=== PATIENT | female | born 1970 | race Caucasian/White ===

== ENCOUNTER 2017-03-11 22:31 | Inpatient (IN) | payer MEDICAID, OTHER ==
[~2017-03-11] VITALS: Ht 157.5 cm; Wt 86.2 kg
[2017-03-12] MEDS ORDERED: MORPHINE SULFATE 4 MG/ML CPJ (NOT FOR IM USE) IV STA (02:18)
[2017-03-12] MEDS ORDERED: ONDANSETRON HCL 4MG/2ML VIAL IV STA (02:18)
[2017-03-12] MEDS ORDERED: SODIUM CHLORIDE 0.9% 1,000 ML IV ONE (02:18)
[2017-03-12 02:35] LABS: CLARITY URINE CLOUDY (CLEAR); COLOR URINE YELLOW (YELLOW); GLUCOSE URINE NEGATIVE (NEGATIVE); KETONES URINE NEGATIVE (NEGATIVE); LEUKOCYTE ESTERASE URINE 1+ (NEGATIVE); NITRITE URINE POSITIVE (NEGATIVE); OCCULT BLOOD URINE NEGATIVE (NEGATIVE); PROTEIN URINE NEGATIVE (NEGATIVE); SPECIFIC GRAVITY URINE 1.019 (1.005-1.030)
[2017-03-12 02:36] LABS: BASOPHILS % 0.2 % (0.0-2.0); EOSINOPHILS % 1.8 % (0.0-5.0); HEMATOCRIT. 31.1 % (36.0-48.0); HEMOGLOBIN. 9.5 g/dL (12.0-16.0); LYMPHOCYTES % 41.9 % (20.0-50.0); MEAN CORPUSCULAR HEMOGLOBIN 20.4 pg (28.0-32.0); MEAN CORPUSCULAR VOLUME 66.5 fL (81.0-99.0); MEAN PLATELET VOLUME 7.3 fl (7.4-10.4); MONOCYTES % 6.4 % (2.0-8.0); NEUTROPHILS % 49.7 % (40.0-76.0); PLATELET 313 x1000/uL (130-400); RED BLOOD CELL COUNT 4.68 mill/uL (4.2-5.4); RED CELL DISTRIBUTION WIDTH 18.5 % (11.6-14.6)
[2017-03-12 03:04] LABS: CARBON DIOXIDE 28 mEq/L (21-32); CHLORIDE 106 mEq/L (98-107)
[2017-03-12] MEDS ORDERED: DIATRIZOATE MEGLUMINE 300ML INFUS BTL UR ONE (04:15)
[2017-03-12] MEDS ORDERED: LEVOFLOXACIN 750MG PREMIX 150 ML IV NR (04:45)
[2017-03-12 08:00] VITALS: BP 107/61
[2017-03-12 08:30] VITALS: BP 107/61
[2017-03-12 10:00] VITALS: BP 107/61
[2017-03-12] MEDS ORDERED: INFLUENZA VIRUS VACCINE 0.5ML SYR IM ONE (10:45)
[2017-03-12 12:00] VITALS: BP 94/40
[2017-03-12 12:28] LABS: HEMATOCRIT 30.8 % (36.0-48.0); HEMOGLOBIN 9.5 g/dL (12.0-16.0); MEAN CORPUSCULAR HEMOGLOBIN 20.8 pg (28.0-32.0); MEAN CORPUSCULAR VOLUME 67.3 fL (81.0-99.0); PLATELET 293 x1000/uL (130-400); RED BLOOD CELL COUNT 4.58 mill/uL (4.2-5.4); RED CELL DISTRIBUTION WIDTH 18.1 % (11.6-14.6)
[2017-03-12 13:59] LABS: CARBON DIOXIDE 27 mEq/L (21-32); CHLORIDE 106 mEq/L (98-107)
[2017-03-12] MEDS: MORPHINE SULFATE 4 MG/ML CPJ (NOT FOR IM USE) IV PRN (15:16)
[2017-03-12] MEDS: ONDANSETRON HCL 4MG/2ML VIAL IV PRN ×2 (15:16→20:47)
[2017-03-12] MEDS: SODIUM CHLORIDE 0.9% 1,000 ML IV SCH ×2 (15:18→20:07)
[2017-03-12 15:54] VITALS: BP 117/48
[2017-03-12 20:00] VITALS: BP 92/44
[2017-03-12] MEDS: FAMOTIDINE 20MG TABLET PO SCH (20:07)
[2017-03-13 00:04] VITALS: BP 129/64
[2017-03-13] MEDS: MORPHINE SULFATE 4 MG/ML CPJ (NOT FOR IM USE) IV PRN ×2 (02:02→11:37)
[2017-03-13 04:24] VITALS: BP 95/53
[2017-03-13] MEDS: LEVOFLOXACIN 500MG PREMIX 100 ML IV SCH (04:25)
[2017-03-13 05:37] LABS: BASOPHILS % 0.6 % (0.0-2.0); EOSINOPHILS % 1.8 % (0.0-5.0); HEMATOCRIT 29.9 % (36.0-48.0); HEMATOCRIT. 29.9 % (36.0-48.0); HEMOGLOBIN 9.2 g/dL (12.0-16.0); HEMOGLOBIN. 9.2 g/dL (12.0-16.0); LYMPHOCYTES % 43.6 % (20.0-50.0); MEAN CORPUSCULAR HEMOGLOBIN 20.6 pg (28.0-32.0); MEAN CORPUSCULAR VOLUME 66.5 fL (81.0-99.0); MEAN PLATELET VOLUME 7.6 fl (7.4-10.4); MONOCYTES % 5.7 % (2.0-8.0); NEUTROPHILS % 48.3 % (40.0-76.0); PLATELET 297 x1000/uL (130-400); RED BLOOD CELL COUNT 4.49 mill/uL (4.2-5.4); RED CELL DISTRIBUTION WIDTH 18.6 % (11.6-14.6)
[2017-03-13 07:02] LABS: CHLORIDE 105 mEq/L (98-107)
[2017-03-13 07:16] LABS: CARBON DIOXIDE 24 mEq/L (21-32); TOTAL IRON BINDING CAPACITY 419 ug/dL (250-450)
[2017-03-13 08:00] VITALS: BP 101/58
[2017-03-13] MEDS: FAMOTIDINE 20MG TABLET PO SCH ×2 (08:48→20:55)
[2017-03-13 09:29] LABS: PLATELET ESTIMATE NORMAL
[2017-03-13 12:00] VITALS: BP 115/64
[2017-03-13] MEDS: SODIUM CHLORIDE 0.9% 1,000 ML IV SCH (14:05)
[2017-03-13 16:00] VITALS: BP 99/78
[2017-03-13 20:00] VITALS: BP 106/62
[2017-03-14] VITALS: BP 96/57
[2017-03-14 04:00] VITALS: BP 95/46
[2017-03-14] MEDS: LEVOFLOXACIN 500MG PREMIX 100 ML IV SCH (05:07)
[2017-03-14 08:00] VITALS: BP 117/55
[2017-03-14] MEDS ORDERED: KETOROLAC 30MG/ML VIAL IV PRN (08:15)
[2017-03-14] MEDS: FAMOTIDINE 20MG TABLET PO SCH (08:33)
[2017-03-14] MEDS: MORPHINE SULFATE 4 MG/ML CPJ (NOT FOR IM USE) IV PRN (11:17)
[2017-03-14 12:00] VITALS: BP 128/65
[2017-03-14 13:28] VITALS: BP 119/56
== END 2017-03-14 15:10 | disposition home or self-care (01) | DRG 463 ==
LOC: ER 22:31 → 5WST 03-12 05:15 → EDBEDREQ 03-12 05:22 → ENRESERV 03-12 06:23
PROVIDERS: ADMIT Internal Medicine; ATTEND Internal Medicine
DX: N10 Acute pyelonephritis (principal); E44.1 Mild protein-calorie malnutrition; E66.9 Obesity, unspecified; J45.909 Unspecified asthma, uncomplicated; D50.9 Iron deficiency anemia, unspecified; Z68.34 Body mass index [BMI] 34.0-34.9, adult
CPT/HCPCS: 36415; 71010; 74177; 80048; 80053; 81001; 81025; 83540; 83550; 83605; 83690; 85025; 85027; 87040; 87077; 87086; 87186; 90686; 96361; 96365; 96366; 96375; 99285; J1885; J1956; J2270; J2405; J7030; Q9958

== ENCOUNTER 2018-11-23 02:36 | Inpatient (IN) | payer MEDICAID, OTHER ==
[~2018-11-23] VITALS: Ht 154.9 cm; Wt 105.3 kg
[2018-11-23] MEDS ORDERED: ONDANSETRON HCL 4MG/2ML INJ IV STA (03:39)
[2018-11-23] MEDS ORDERED: MORPHINE SULFATE 4 MG/ML CPJ (NOT FOR IM USE) IV STA (03:39)
[2018-11-23] MEDS ORDERED: SODIUM CHLORIDE 0.9% 1,000 ML IV ONE ×2 (03:39)
[2018-11-23 03:59] LABS: BASOPHILS % 0.8 % (0.0-2.0); HEMOGLOBIN. 10.4 g/dL (12.0-16.0); LYMPHOCYTES % 39.5 % (20.0-50.0); MEAN CORPUSCULAR HEMOGLOBIN 22.2 pg (28.0-32.0); MEAN CORPUSCULAR VOLUME 70.1 fL (81.0-99.0); MEAN PLATELET VOLUME 7.9 fl (7.4-10.4); MONOCYTES % 5.8 % (2.0-8.0); NEUTROPHILS % 51.9 % (40.0-76.0); PLATELET 275 x1000/uL (130-400); RED CELL DISTRIBUTION WIDTH 20.3 % (11.6-14.6)
[2018-11-23 04:02] LABS: CHLORIDE 106 mEq/L (98-107)
[2018-11-23 05:33] LABS: CLARITY URINE CLEAR (CLEAR); COLOR URINE YELLOW (YELLOW); KETONES URINE NEGATIVE (NEGATIVE); LEUKOCYTE ESTERASE URINE NEGATIVE (NEGATIVE); NITRITE URINE NEGATIVE (NEGATIVE); OCCULT BLOOD URINE 2+ (NEGATIVE); PROTEIN URINE NEGATIVE (NEGATIVE); SPECIFIC GRAVITY URINE 1.007 (1.005-1.030); UROBILINOGEN URINE 0.2 E.U./dL (0.2-1.0)
[2018-11-23] MEDS ORDERED: ONDANSETRON HCL 4MG/2ML INJ IV PRN (07:30)
[2018-11-23] MEDS ORDERED: ACETAMINOPHEN 325MG TABLET PO PRN (07:30)
[2018-11-23] MEDS ORDERED: DOCUSATE SODIUM 100MG CAPSULE PO PRN (07:30)
[2018-11-23] MEDS ORDERED: HYDROCODONE/ACETAMINOPHEN 5/325MG TABLET PO PRN (07:30)
[2018-11-23] MEDS ORDERED: DIPHENHYDRAMINE 50MG/ML VIAL IV PRN (07:30)
[2018-11-23] MEDS ORDERED: GUAIFENESIN 200MG/10ML SUGAR FREE UDC PO PRN (07:30)
[2018-11-23] MEDS ORDERED: CLONIDINE 0.1MG TABLET PO PRN (07:30)
[2018-11-23] MEDS ORDERED: IPRATROPIUM/ALBUTEROL 0.5-3(2.5)MG/3ML NEB INH PRN (07:30)
[2018-11-23] MEDS ORDERED: MAGNESIUM/ALUMINUM HYDROXIDE/SIMETHICONE 30ML UDC PO PRN (07:30)
[2018-11-23 07:53] LABS: PHOSPHORUS 3.5 mg/dL (2.5-4.9)
[2018-11-23] MEDS: SODIUM CHLORIDE 0.9% 1,000 ML IV SCH ×2 (08:00→23:17)
[2018-11-23 08:35] VITALS: BP 122/52
[2018-11-23] MEDS: MORPHINE SULFATE 2 MG/ML CPJ (NOT FOR IM USE) IV PRN ×3 (09:12→23:15)
[2018-11-23 12:00] VITALS: BP 127/61
[2018-11-23 16:00] VITALS: BP 114/64
[2018-11-23 20:00] VITALS: BP 127/72
[2018-11-24] VITALS: BP 124/76
[2018-11-24] MEDS: SODIUM CHLORIDE 0.9% 1,000 ML IV SCH ×2 (03:48→09:58)
[2018-11-24 04:00] VITALS: BP 108/51
[2018-11-24 06:30] LABS: CHLORIDE 108 mEq/L (98-107)
[2018-11-24 06:41] LABS: FERRITIN 24 ng/mL (10-291)
[2018-11-24 06:43] LABS: BASOPHILS % 0.4 % (0.0-2.0); EOSINOPHILS % 2.4 % (0.0-5.0); HEMATOCRIT. 33.6 % (36.0-48.0); HEMOGLOBIN. 10.6 g/dL (12.0-16.0); LYMPHOCYTES % 40.4 % (20.0-50.0); MEAN CORPUSCULAR HEMOGLOBIN 22.2 pg (28.0-32.0); MEAN CORPUSCULAR VOLUME 70.4 fL (81.0-99.0); MEAN PLATELET VOLUME 8.2 fl (7.4-10.4); MONOCYTES % 5.9 % (2.0-8.0); NEUTROPHILS % 50.9 % (40.0-76.0); PLATELET 265 x1000/uL (130-400); RED BLOOD CELL COUNT 4.78 mill/uL (4.2-5.4); RED CELL DISTRIBUTION WIDTH 20.3 % (11.6-14.6)
[2018-11-24 06:46] LABS: HDL CHOLESTEROL 40 mg/dL (40-59)
[2018-11-24 06:48] LABS: LDL CHOLESTEROL 104 mg/dL (5-100)
[2018-11-24 06:50] LABS: TOTAL IRON BINDING CAPACITY 398 ug/dL (250-450)
[2018-11-24 07:44] LABS: VITAMIN B12 SERUM 1057 pg/mL (211-911)
[2018-11-24 08:00] VITALS: BP 109/49
[2018-11-24 12:00] VITALS: BP 105/49
[2018-11-24 15:15] VITALS: BP_SYST 105; BP_SYST 121; BP_DIAS 43; BP_DIAS 49
[2018-11-24 16:00] VITALS: BP 121/43
[2018-11-24] MEDS ORDERED: FERROUS SULFATE 325MG TABLET PO SCH (17:15)
[2018-11-24] MEDS ORDERED: ASCORBIC ACID 500 MG TABLET PO SCH (21:00)
[2018-11-26 09:06] LABS: FOLATE HEMATOCRIT 34.4 % (34.0-46.6)
[2018-11-26 13:11] LABS: FOLATE HEMOLYSATE 378.5 ng/mL (Not Estab.); FOLATE RBC 1100 ng/mL (>498)
== END 2018-11-24 19:16 | disposition home or self-care (01) | DRG 244 ==
LOC: ER 02:36 → EDBEDREQ 05:45 → 5WST 05:45 → EDBEDREQTM 05:45 → ENRESERV 07:03
PROVIDERS: ADMIT Internal Medicine; ATTEND Internal Medicine
DX: K57.90 Diverticulosis of intestine, part unspecified, without perforation or abscess without bleeding (principal); K76.0 Fatty (change of) liver, not elsewhere classified; Z68.41 Body mass index [BMI] 40.0-44.9, adult; R10.31 Right lower quadrant pain; K52.9 Noninfective gastroenteritis and colitis, unspecified; D50.9 Iron deficiency anemia, unspecified; R74.0 Nonspecific elevation of levels of transaminase and lactic acid dehydrogenase [LDH]
CPT/HCPCS: 36415; 71045; 74176; 76700; 80061; 81025; 82607; 82728; 82747; 83540; 83550; 83605; 83735; 84100; 84443; 85014; 93005; 93970; 96361; 96374; 96375; 99285; J2270; J2405; J7030

== ENCOUNTER 2020-05-13 12:42 | Emergency (ER) | payer MEDICAID ==
[~2020-05-13] VITALS: Ht 157.5 cm; Wt 90.0 kg
[2020-05-13] MEDS ORDERED: IBUPROFEN 600MG TABLET PO STA (13:29)
[2020-05-13] MEDS ORDERED: ACETAMINOPHEN 325MG TABLET PO STA (13:29)
[2020-05-13 15:00] VITALS: BP 165/90
[2020-05-13 15:15] LABS: BASOPHILS % 0.5 % (0.0-2.0); EOSINOPHILS % 0.4 % (0.0-5.0); HEMATOCRIT. 30.8 % (36.0-48.0); HEMOGLOBIN. 9.3 g/dL (12.0-16.0); LYMPHOCYTES % 32.7 % (20.0-50.0); MEAN CORPUSCULAR HEMOGLOBIN 18.2 pg (28.0-32.0); MEAN CORPUSCULAR VOLUME 60.4 fL (81.0-99.0); MEAN PLATELET VOLUME 8.8 fl (7.4-10.4); MONOCYTES % 5.3 % (2.0-8.0); NEUTROPHILS % 61.1 % (40.0-76.0); PLATELET 216 x1000/uL (130-400); RED BLOOD CELL COUNT 5.09 mill/uL (4.2-5.4)
[2020-05-13 15:21] LABS: CHLORIDE 105 mEq/L (98-107)
[2020-05-13 15:52] LABS: PLATELET ESTIMATE NORMAL
== END 2020-05-13 15:00 | disposition home or self-care (01) ==
LOC: ER 12:42
DX: U07.1 COVID-19 (principal); R07.89 Other chest pain; J45.909 Unspecified asthma, uncomplicated
CPT/HCPCS: 36415; 71045; 80053; 83880; 84484; 85025; 93005; 99285

== ENCOUNTER 2021-08-17 00:51 | Emergency (ER) | payer MEDICAID ==
[~2021-08-17] VITALS: Ht 152.4 cm; Wt 97.0 kg
[2021-08-17] MEDS ORDERED: MORPHINE SULFATE 4 MG/ML CPJ (NOT FOR IM USE) IV STA (02:07)
[2021-08-17] MEDS ORDERED: ONDANSETRON HCL 4MG/2ML INJ IV STA (02:07)
[2021-08-17] MEDS ORDERED: SODIUM CHLORIDE 0.9% 1,000 ML IV ONE (02:15)
[2021-08-17 02:46] LABS: BASOPHILS % 0.2 % (0.0-2.0); CLARITY URINE CLEAR (CLEAR); COLOR URINE YELLOW (YELLOW); EOSINOPHILS % 1.9 % (0.0-5.0); HEMATOCRIT. 28.5 % (36.0-48.0); HEMOGLOBIN. 8.5 g/dL (12.0-16.0); KETONES URINE NEGATIVE (NEGATIVE); LEUKOCYTE ESTERASE URINE TRACE (NEGATIVE); LYMPHOCYTES % 36.5 % (20.0-50.0); MEAN CORPUSCULAR HEMOGLOBIN 17.6 pg (28.0-32.0); MEAN CORPUSCULAR VOLUME 58.9 fL (81.0-99.0); MEAN PLATELET VOLUME 8.6 fl (7.4-10.4); MONOCYTES % 6.5 % (2.0-8.0); NEUTROPHILS % 54.9 % (40.0-76.0); NITRITE URINE NEGATIVE (NEGATIVE); OCCULT BLOOD URINE NEGATIVE (NEGATIVE); PH URINE 6.5 (4.5-8.0); PLATELET 320 x1000/uL (130-400); PROTEIN URINE NEGATIVE (NEGATIVE); RED BLOOD CELL COUNT 4.84 mill/uL (4.2-5.4); RED CELL DISTRIBUTION WIDTH 21.2 % (11.6-14.6); SPECIFIC GRAVITY URINE 1.007 (1.005-1.030); UROBILINOGEN URINE 0.2 E.U./dL (0.2-1.0)
[2021-08-17 02:55] LABS: CHLORIDE 106 mEq/L (98-107)
[2021-08-17 03:41] LABS: PLATELET ESTIMATE NORMAL
[2021-08-17 06:00] VITALS: BP 147/65
[2021-08-17] MEDS ORDERED: IOHEXOL-300 100 ML BOTTLE ONE (06:13)
== END 2021-08-17 06:10 | disposition home or self-care (01) ==
LOC: ER 00:51
DX: R10.11 Right upper quadrant pain (principal); J45.909 Unspecified asthma, uncomplicated; Z98.890 Other specified postprocedural states
CPT/HCPCS: 36415; 71045; 74177; 80053; 81003; 81025; 83690; 84484; 85025; 93005; 96361; 96374; 96375; 99285; J2270; J2405; J7030; Q9967

== ENCOUNTER 2022-10-20 15:47 | Emergency (ER) | payer MEDICAID ==
[~2022-10-20] VITALS: Ht 180.3 cm; Wt 93.0 kg
[2022-10-20 16:21] VITALS: BP 183/77
[2022-10-20 16:55] LABS: BASOPHILS % 0.4 % (0.0-2.0); EOSINOPHILS % 3.2 % (0.0-5.0); HEMOGLOBIN. 7.7 g/dL (12.0-16.0); LYMPHOCYTES % 38.2 % (20.0-50.0); MEAN CORPUSCULAR VOLUME 57.3 fL (81.0-99.0); MEAN PLATELET VOLUME 8.5 fl (7.4-10.4); MONOCYTES % 5.7 % (2.0-8.0); NEUTROPHILS % 52.5 % (40.0-76.0); PLATELET 322 x1000/uL (130-400); RED BLOOD CELL COUNT 4.53 mill/uL (4.2-5.4); RED CELL DISTRIBUTION WIDTH 21.4 % (11.6-14.6)
[2022-10-20 17:05] LABS: CHLORIDE 107 mEq/L (98-107)
[2022-10-20 19:03] LABS: PLATELET ESTIMATE NORMAL
== END 2022-10-21 02:33 | disposition left against medical advice (07) ==
LOC: ER 15:47
DX: Z53.21 Procedure and treatment not carried out due to patient leaving prior to being seen by health care provider (principal)
CPT/HCPCS: 36415; 80053; 85025; 99281

== ENCOUNTER 2024-08-12 01:41 | Emergency (ER) | payer SELFPAY ==
[~2024-08-12] VITALS: Ht 154.9 cm; Wt 107.0 kg
[2024-08-12 01:47] VITALS: O2SAT 100
[2024-08-12 01:56] VITALS: TEMP 36.9; O2SAT 100
[2024-08-12 02:37] LABS: CARBON DIOXIDE 28 mEq/L (21-32); CHLORIDE 101 mEq/L (98-107); POTASSIUM 3.7 mEq/L (3.5-5.1); SODIUM 140 mEq/L (136-145)
[2024-08-12 02:38] LABS: CALCIUM 9.9 mg/dL (8.7-10.4)
[2024-08-12 02:42] LABS: CREATININE 0.7 mg/dL (0.6-1.0); GLUCOSE 117 mg/dL (70-105)
[2024-08-12 02:43] LABS: UREA NITROGEN BLOOD 13 mg/dL (9-23)
[2024-08-12 02:46] LABS: CLARITY URINE CLEAR (CLEAR); COLOR URINE YELLOW (YELLOW); GLUCOSE URINE NEGATIVE (NEGATIVE); KETONES URINE NEGATIVE (NEGATIVE); LEUKOCYTE ESTERASE URINE NEGATIVE (NEGATIVE); NITRITE URINE NEGATIVE (NEGATIVE); OCCULT BLOOD URINE NEGATIVE (NEGATIVE); PH URINE 6.5 (4.5-8.0); PROTEIN URINE NEGATIVE (NEGATIVE); SPECIFIC GRAVITY URINE 1.007 (1.005-1.030); UROBILINOGEN URINE 0.2 E.U./dL (0.2-1.0)
[2024-08-12 02:51] LABS: BASOPHILS % 0.5 % (0.0-2.0); DIFFERENTIAL COMMENT 0; HEMATOCRIT. 40.1 % (36.0-48.0); HEMOGLOBIN. 13.1 g/dL (12.0-16.0); MEAN CORPUSCULAR HEMOGLOBIN 25.7 pg (28.0-32.0); MEAN CORPUSCULAR HGB CONC 32.7 g/dL (31.0-37.0); MEAN CORPUSCULAR VOLUME 78.5 fL (81.0-99.0); MEAN PLATELET VOLUME 8.5 fl (7.4-10.4); NEUTROPHILS % 49.5 % (40.0-76.0); PLATELET 234 x1000/uL (130-400); RED CELL DISTRIBUTION WIDTH 15.9 % (11.6-14.6); WHITE BLOOD COUNT 8.4 x1000/uL (4.5-11.0)
[2024-08-12] MEDS: ONDANSETRON HCL 4MG/2ML INJ IV STA (03:09)
[2024-08-12] MEDS: MORPHINE SULFATE 4 MG/ML INJ (FOR IV/IM USE) IV STA (03:09)
[2024-08-12 03:27] LABS: ALANINE AMINOTRANSFERASE 26 IU/L (10-49); ALBUMIN 4.4 g/dL (3.2-4.8); ASPARTATE AMINOTRANSFERASE 25 IU/L (<34); BILIRUBIN DIRECT < 0.1 mg/dL (<=3.0); BILIRUBIN TOTAL 0.4 mg/dL (0.1-1.0); PROTEIN TOTAL 8.3 g/dL (6.0-8.3)
[2024-08-12] MEDS ORDERED: ONDANSETRON HCL 4MG/2ML INJ IV STA (05:45)
[2024-08-12 05:54] VITALS: BP 140/85; PULSE 83; RESP 22
[2024-08-12] MEDS: MORPHINE SULFATE 4 MG/ML INJ (FOR IV/IM USE) IV NR (05:54)
[2024-08-12] MEDS: ONDANSETRON HCL 4MG/2ML INJ IV NR (07:08)
[2024-08-12] MEDS ORDERED: IBUP-2029 MT (07:32)
[2024-08-12] MEDS: IOHEXOL-300 100 ML BOTTLE ONE (07:34)
== END 2024-08-12 07:58 | disposition home or self-care (01) ==
LOC: ER 01:41
DX: R10.30 Lower abdominal pain, unspecified (principal); R10.10 Upper abdominal pain, unspecified; Z98.890 Other specified postprocedural states
CPT/HCPCS: 99285; 74177; 96374; 96375; 80076; 80048; 81003; 81025; 83690; 85025; 36415; 93005; 96376; Q9967; J2405; J2270